=== PATIENT | female | born 1965 | race Caucasian/White ===

== ENCOUNTER 2017-01-19 09:19 | Day surgery (SDC) | payer OTHER ==
[~2017-01-19] VITALS: Ht 170.2 cm; Wt 88.6 kg
[~2017-01-19 09:19] MED LIST: ALBU8.5H2 INHALATION; BECL8.7A6 INHALATION; CHOL500011 PO; Sodium Chloride LOK Flush 10 mL Syringe IV PRN; fentaNYL-PF 50 mCg/mL 2 mL Inj IVPUSH PRN
[2017-01-19 09:30] VITALS: BP 122/68; PULSE 57; RESP 14; O2SAT 99
[2017-01-19] MEDS ORDERED: 0.9% Sodium Chloride 1,000 ML ONE (09:41)
[2017-01-19 10:08] VITALS: BP 109/58; PULSE 54; RESP 12; O2SAT 97
[2017-01-19 10:10] VITALS: BP 105/56; PULSE 50; RESP 14; O2SAT 100
[2017-01-19 10:22] VITALS: BP 105/56; PULSE 51; RESP 14
--- NOTE | 2017-01-19 13:12 | ENDO ---
[address] [id number] ENDOSCOPY PROCEDURE PATIENT: LEEANN MARCH : 1965 MR#: [id number] ADMIT: 01/19/2017 JOB ID: [id number] DATE: 01/19/2017 TYPE OF OPERATION: Colonoscopy. PREOPERATIVE DIAGNOSIS(ES): Colorectal cancer screening. POSTOPERATIVE DIAGNOSIS(ES): Normal colonoscopy. ANESTHESIA: 1. Fentanyl 125 mcg. 2. Versed 6 mg IV administered. COMPLICATIONS: None. BLOOD LOSS: Minimal. DESCRIPTION OF PROCEDURE: After risks and benefits were explained to the patient, informed consent was obtained. After anesthesia administered, colonoscope was then inserted from the rectum to the cecum. Mucosa carefully examined. Prep of the patient was excellent. After procedure was done, the scope was withdrawn and procedure terminated. FINDINGS: Upon inspection of the anus, no masses, hemorrhoids, ulcers, or fissures that were seen. Throughout the entire examination, there were no polyps, masses, or lesions. Retroflexion was normal. IMPRESSION: Normal colonoscopy. RECOMMENDATIONS: Repeat colonoscopy 10 years for colorectal cancer screening.
== END 2017-01-19 23:59 | disposition home or self-care (01) ==
LOC: END 09:19
PROVIDERS: ATTEND Internal Medicine Gastroenterology
DX: Z12.11 Encounter for screening for malignant neoplasm of colon (principal); Z80.0 Family history of malignant neoplasm of digestive organs; J45.909 Unspecified asthma, uncomplicated
CPT/HCPCS: G0105; G0500; J2250; J3010; J7030